=== PATIENT | female | born 1945 | race Hispanic/Latino ===

== ENCOUNTER 2018-06-09 10:53 | Day surgery (SDC) | payer MEDICARE, BC ==
[2018-05-31 14:13] VITALS: BMI 19.2
[2018-06-09] MEDS ORDERED: Propofol 10 mg/ml Inj (20 ML) ONE (13:10)
[2018-06-09] MEDS ORDERED: Etomidate 20 mg/10ml Inj IV ONE (13:11)
[2018-06-09] MEDS ORDERED: Sodium Chloride 0.9% 1,000 ML IV SCH (13:45)
[2018-06-09 14:53] VITALS: BP 134/71; PULSE 60; RESP 18; TEMP 98.1; O2SAT 96
== END 2018-06-09 15:01 | disposition home or self-care (01) ==
LOC: ENDO 10:53
PROVIDERS: ATTEND Internal Medicine Gastroenterology
DX: K29.50 Unspecified chronic gastritis without bleeding (principal); K44.9 Diaphragmatic hernia without obstruction or gangrene; K21.9 Gastro-esophageal reflux disease without esophagitis; K90.0 Celiac disease
CPT/HCPCS: 43239; 88305; 88342; J2001; J2704; J7030; J7040

== ENCOUNTER 2018-10-11 08:02 | Outpatient (CLI) | payer MEDICARE, BC | END 2018-10-11 08:03 | disposition home or self-care (01) | LOC: LAB 08:02 ==